=== PATIENT | male | born 1950 | race Caucasian/White ===

== ENCOUNTER 2020-08-23 19:23 | Inpatient (IN) | payer MEDICARE ==
[2020-08-23] MEDS ORDERED: Sodium Chloride 0.9% 10 ML Syringe FLUSH PRN (20:09)
--- NOTE | 2020-08-23 20:14 | EDM.PDOC ---
ED HPI GENERAL MEDICAL PROBLEM - General Chief Complaint: Abdominal Pain Stated Complaint: abd pain Time Seen by Provider: 08/23/20 19:55 Source of Information: Reports: Patient, Old Records, RN History Limitations: Reports: No Limitations - History of Present Illness INITIAL COMMENTS - FREE TEXT/NARRATIVE: 70 yo male here with RLQ pain that began about 0100h today and has gradually worsened. He has had decreased appetite and feels a little bloated. Has had 2 normal BM's today. PHx includes hernia repair, no other abdominal surgeries. No fever or urinary sx's. Onset: Today, Gradual Onset Date: 08/23/20 Duration: Hour(s):, Getting Worse Location: Reports: Abdomen Quality: Reports: Ache Severity: Moderate Improves with: Reports: Rest Worsens with: Reports: Other (time) Context: Reports: Other (See HPI) Associated Symptoms: Reports: Loss of Appetite, Malaise. Denies: Fever/Chills, Nausea/Vomiting Treatments [employer] GUID[employer] COUNSELOR: Reports: Other (see below) (none) - Related Data Allergies Allergy/AdvReac Type Severity Reaction Status Date / Time hydromorphone [From Dilaudid] Allergy Nausea and Verified 08/23/20 19:44 Vomiting lisinopril AdvReac Cough Verified 08/23/20 19:44 Home Meds: Home Meds Amitriptyline [Elavil] 50 mg PO BEDTIME 09/15/13 [History] Aspirin [Adult Low Dose Aspirin EC] 81 mg PO DAILY 09/15/13 [History] Chlorhexidine [Chlorhexidine Flavor] 1 ml PO DAILY 09/15/13 [History] Hydrochlorothiazide 25 mg PO DAILY 09/15/13 [History] Hyoscyamine [Levsin] 0.125 mg PO DAILY 09/15/13 [History] Triamcinolone Acetonide [Nasacort AQ [place]] 2 spray TOP DAILY 09/15/13 [History] amLODIPine Besylate [Amlodipine Besylate] 5 mg PO DAILY 09/15/13 [History] atorvaSTATin Calcium [Atorvastatin Calcium] 20 mg PO DAILY 09/15/13 [History] metFORMIN [Glucophage] 500 mg PO BID 09/15/13 [History] Dulaglutide [Trulicity] 1.5 mg SQ WEEKLY 08/23/20 [History] Past Medical History HEENT History: Reports: Otitis Media Cardiovascular History: Reports: High Cholesterol, Hypertension Respiratory History: Reports: Sleep Apnea Other Respiratory History: cpap Gastrointestinal History: Reports: Chronic Constipation Genitourinary History: Reports: None Musculoskeletal History: Reports: Arthritis, Other (See Below) Neurological History: Reports: None Psychiatric History: Reports: None Endocrine/Metabolic History: Reports: Diabetes, Type II, Obesity/BMI 30+ Hematologic History: Reports: None Immunologic History: Reports: None Oncologic (Cancer) History: Reports: None Dermatologic History: Reports: None - Infectious Disease History Infectious Disease History: Reports: Chicken Pox - Past Surgical History Head Surgeries/Procedures: Reports: None HEENT Surgical History: Reports: LASIK Cardiovascular Surgical History: Reports: None GI Surgical History: Reports: Hernia, Abdominal Endocrine Surgical History: Reports: None Musculoskeletal Surgical History: Reports: Arthroscopic Knee, Other (See Below) Other Musculoskeletal Surgeries/Procedures:: Knee surgery Dermatological Surgical History: Reports: None Social & Family History - Tobacco Use Tobacco Use Status *Q: Former Tobacco User Used Tobacco, but Quit: Yes Month/Year Tobacco Last Used: 1999 Second Hand Smoke Exposure: No - Caffeine Use Caffeine Use: Reports: Coffee - Recreational Drug Use Recreational Drug Use: No ED ROS GENERAL - Review of Systems Review Of Systems: See Below Constitutional: Reports: Malaise, Decreased Appetite HEENT: Reports: No Symptoms Respiratory: Reports: No Symptoms Cardiovascular: Reports: No Symptoms Endocrine: Reports: No Symptoms GI/Abdominal: Reports: Abdominal Pain, Decreased Appetite, Distension. Denies: Black Stool, Bloody Stool, Constipation, Diarrhea, Flatus, Hematemesis, Hematochezia, Melena, Nausea, Vomiting : Reports: No Symptoms Musculoskeletal: Reports: No Symptoms Skin: Reports: No Symptoms Neurological: Reports: No Symptoms Psychiatric: Reports: No Symptoms ED EXAM, GI/ABD - Physical Exam Exam: See Below Exam Limited By: No Limitations General Appearance: Alert, WD/WN, No Apparent Distress Eyes: Bilateral: Normal Appearance Ears: Normal External Exam, Normal Canal, Hearing Grossly Normal Nose: Normal Inspection, No Blood Throat/Mouth: Normal Inspection, Normal Lips, Normal Oropharynx, Normal Voice, No Airway Compromise Head: Atraumatic, Normocephalic Neck: Normal Inspection Respiratory/Chest: No Respiratory Distress, Lungs Clear, Normal Breath Sounds, No Accessory Muscle Use Cardiovascular: Regular Rate, Rhythm, No Edema GI/Abdominal Exam: Soft, Distended (minimal), Tender (RLQ). No: Non-Tender, No Distention, Guarding, Rigid Back Exam: Normal Inspection Extremities: Normal Inspection, Normal Range of Motion, Non-Tender, No Pedal Edema Neurological: Alert, Oriented, CN II-XII Intact, Normal Cognition, No Motor/Sensory Deficits Psychiatric: Normal Affect, Normal Mood Skin Exam: Warm, Dry, Intact, Normal Color, No Rash Course - Vital Signs Text/Narrative:: Dr. Ninfa Max called @ 5061h Last Recorded V/S: Last Vital Signs Temp 35.6 C L 08/23/20 19:49 Pulse 114 H 08/23/20 21:31 Resp 16 08/23/20 21:31 BP 164/89 H 08/23/20 21:31 Pulse Ox 95 08/23/20 21:31 - Orders/Labs/Meds Orders: Active Orders 24 hr Category Date Time Status NS + KCl 20mEq/L [Normal Saline with 20 mEq KCl] 1,000 Med 08/23/20 20:45 Active ml IV ASDIRECTED Sodium Chloride 0.9% [Normal Saline] 83 ml Med 08/23/20 21:00 Active IV ASDIRECTED Sodium Chloride 0.9% [Saline Flush] Med 08/23/20 20:09 Active 10 ml FLUSH ASDIRECTED PRN Saline Lock Insert [OM.PC] Routine Oth 08/23/20 20:09 Ordered Medication Orders Potassium Chloride/Sodium Chloride (Normal Saline With 20 Meq Kcl) 1,000 mls @ 150 mls/hr IV ASDIRECTED NIELS Last Admin: 08/23/20 20:57 Dose: 150 mls/hr Documented by: LEEROY Sodium Chloride (Normal Saline) 83 mls @ 3.5 mls/sec IV ASDIRECTED NIELS Last Admin: 08/23/20 21:21 Dose: 3 mls/sec Documented by: DARWIN Sodium Chloride (Saline Flush) 10 ml FLUSH ASDIRECTED PRN PRN Reason: Keep Vein Open Last Admin: 08/23/20 20:58 Dose: 10 ml Documented by: LEEROY Labs: Laboratory Tests 08/23/20 08/23/20 08/23/20 Range/Units 20:19 20:19 20:19 WBC 15.2 H (4.5-11.0) K/uL RBC 4.99 (4.30-5.90) M/uL Hgb 14.9 (12.0-15.0) g/dL Hct 44.8 (40.0-54.0) % MCV 90 (80-98) fL MCH 30 (27-31) pg MCHC 33 (32-36) % Plt Count 239 (150-400) K/uL Sodium 136 L (140-148) mmol/L Potassium 3.3 L (3.6-5.2) mmol/L Chloride 99 L (100-108) mmol/L Carbon Dioxide 28 (21-32) mmol/L Anion Gap 12.3 (5.0-14.0) mmol/L BUN 17 (7-18) mg/dL Creatinine 0.9 (0.8-1.3) mg/dL Est Cr Clr Drug Dosing 59.36 mL/min Estimated GFR (MDRD) > 60 (>60) Glucose 157 H (74-106) mg/dL Calcium 9.6 (8.5-10.1) mg/dL C-Reactive Protein 0.20 (0.0-0.3) mg/dL Urine Color (YELLOW) Urine Appearance (CLEAR) Urine pH (5.0-8.0) Ur Specific [place] (1.008-1.030) Urine Protein (NEGATIVE) mg/dL Urine Glucose (UA) (NEGATIVE) mg/dL Urine Ketones (NEGATIVE) mg/dL Urine Occult Blood (NEGATIVE) Urine Nitrite (NEGATIVE) Urine Bilirubin (NEGATIVE) Urine Urobilinogen (0.2-1.0) EU/dL Ur Leukocyte Esterase (NEGATIVE) Urine RBC (0-5) Urine WBC (0-5) Ur Epithelial Cells Amorphous Sediment Urine Bacteria Urine Mucus 08/23/20 Range/Units 20:57 WBC (4.5-11.0) K/uL RBC (4.30-5.90) M/uL Hgb (12.0-15.0) g/dL Hct (40.0-54.0) % MCV (80-98) fL MCH (27-31) pg MCHC (32-36) % Plt Count (150-400) K/uL Sodium (140-148) mmol/L Potassium (3.6-5.2) mmol/L Chloride (100-108) mmol/L Carbon Dioxide (21-32) mmol/L Anion Gap (5.0-14.0) mmol/L BUN (7-18) mg/dL Creatinine (0.8-1.3) mg/dL Est Cr Clr Drug Dosing mL/min Estimated GFR (MDRD) (>60) Glucose (74-106) mg/dL Calcium (8.5-10.1) mg/dL C-Reactive Protein (0.0-0.3) mg/dL Urine Color Yellow (YELLOW) Urine Appearance Cloudy A (CLEAR) Urine pH 8.0 (5.0-8.0) Ur Specific [place] 1.025 (1.008-1.030) Urine Protein Negative (NEGATIVE) mg/dL Urine Glucose (UA) Negative (NEGATIVE) mg/dL Urine Ketones Negative (NEGATIVE) mg/dL Urine Occult Blood Negative (NEGATIVE) Urine Nitrite Negative (NEGATIVE) Urine Bilirubin Negative (NEGATIVE) Urine Urobilinogen 0.2 (0.2-1.0) EU/dL Ur Leukocyte Esterase Negative (NEGATIVE) Urine RBC Not seen (0-5) Urine WBC 0-5 (0-5) Ur Epithelial Cells Not seen Amorphous Sediment Packed Urine Bacteria Rare Urine Mucus Not seen Meds: Medications Generic Name Dose Route Start Last Admin Trade Name Freq PRN Reason Stop Dose Admin Potassium Chloride/Sodium Chloride 1,000 mls @ 150 mls/hr 08/23/20 20:45 08/23/20 20:57 Normal Saline With 20 Meq Kcl IV 150 mls/hr ASDIRECTED NIELS Administration Sodium Chloride 83 mls @ 3.5 mls/sec 08/23/20 21:00 08/23/20 21:21 Normal Saline IV 3 mls/sec ASDIRECTED NIELS Administration Sodium Chloride 10 ml 08/23/20 20:09 08/23/20 20:58 Saline Flush FLUSH 10 ml ASDIRECTED PRN Administration Keep Vein Open Discontinued Medications Generic Name Dose Route Start Last Admin Trade Name Freq PRN Reason Stop Dose Admin Iopamidol 141 ml 08/23/20 21:00 08/23/20 21:22 Isovue-300 (61%) IV 141 ml . DIRECTED NIELS Administration Sodium Chloride 10 ml 08/23/20 21:00 08/23/20 21:21 Saline Flush FLUSH 08/23/20 21:01 10 ml ONETIME ONE Administration - Radiology Interpretation Free Text/Narrative:: CT abd/pelvis with IV contrast-IMPRESSION: Acute appendicitis. Fluid collection measuring approximately 3 x 2 cm is along the medial margin of the cecum near the inflamed appendix. This could represent an abscess or mucocele. Dictated by Dontae Gray MD @ 08/23/2020 10:10:22 PM Please note that all CT scans at this facility use dose modulation, iterative reconstruction, and/or weight-based dosing when appropriate to reduce radiation dose to as low as reasonably achievable. Dictated by: Dontae Gray MD @ 08/23/2020 22:10:35 Departure - Departure Time of Disposition: 22:30 Disposition: Admitted As Inpatient 65 Condition: Fair Clinical Impression: Hypokalemia Acute appendicitis Qualifiers: Acute appendicitis type: with localized peritonitis Appendicitis gangrene presence: unspecified whether gangrene present Appendicitis perforation presence: unspecified whether perforation present Appendicitis abscess presence: unspecified whether abscess present Qualified Code(s): K35.30 - Acute appendicitis with localized peritonitis, without perforation or gangrene - Discharge Information Referrals: Sudhir Vargas MD [Primary Care Provider] - Forms: ED Department Discharge Sepsis Event Note (ED) - Evaluation Sepsis Screening Result: No Definite Risk - Focused Exam Vital Signs: Vital Signs Temp Pulse Resp BP Pulse Ox 08/23/20 21:31 114 H 16 164/89 H 95 08/23/20 20:55 106 H 170/103 H 08/23/20 19:49 35.6 C L 111 H 22 H 187/114 H 97 08/23/20 19:43 35.6 C L 111 H 22 H 187/114 H 97 - My Orders Last 24 Hours: My Active Orders 08/23/20 20:09 Sodium Chloride 0.9% [Saline Flush] 10 ml FLUSH ASDIRECTED PRN Saline Lock Insert [OM.PC] Routine 08/23/20 20:45 NS + KCl 20mEq/L [Normal Saline with 20 mEq KCl] 1,000 ml IV ASDIRECTED 08/23/20 21:00 Sodium Chloride 0.9% [Normal Saline] 83 ml IV ASDIRECTED - Assessment/Plan Last 24 Hours: My Active Orders 08/23/20 20:09 Sodium Chloride 0.9% [Saline Flush] 10 ml FLUSH ASDIRECTED PRN Saline Lock Insert [OM.PC] Routine 08/23/20 20:45 NS + KCl 20mEq/L [Normal Saline with 20 mEq KCl] 1,000 ml IV ASDIRECTED 08/23/20 21:00 Sodium Chloride 0.9% [Normal Saline] 83 ml IV ASDIRECTED
[2020-08-23] MEDS ORDERED: NS + KCl 20mEq/L 1,000 ML IV SCH (20:45)
[2020-08-23] MEDS ORDERED: Iopamidol 612 MG/ML 150 ML Bottle IV SCH (21:00)
[2020-08-23] MEDS ORDERED: Sodium Chloride 0.9% 10 ML Syringe FLUSH ONE (21:00)
--- NOTE | 2020-08-23 22:12 | CRLCT ---
INDICATION: Right lower quadrant abdomen pain. TECHNIQUE: CT abdomen and pelvis acquired with 141 cc Isovue-300 IV contrast. COMPARISON: October 22, 2019. FINDINGS: Lower chest: Unremarkable. Liver: Unremarkable. Normal in size and attenuation. No masses. Gallbladder and bile ducts: Unremarkable. No stones or inflammation. No biliary dilatation. Pancreas: Unremarkable. No mass or inflammation. Spleen: Unremarkable. Normal in size. No masses. Adrenal glands: Unremarkable. No nodules. Kidneys: Single tiny nonobstructive stones in the right kidney. There is also a small benign-appearing cyst in the right kidney. No hydronephrosis. GI tract: Unremarkable. Normal in caliber. No sign of mass or inflammation. Appendix is inflamed and dilated up to 9 mm. A fluid collection along the medial margin of the cecum on series 2, image 81 measures 3.4 x 1.9 cm. This fluid collection has an enhancing rim. Vasculature: Unremarkable. Mesenteric arteries are patent. Lymph nodes: No lymphadenopathy. Omentum/Peritoneum/Abdominal Wall: Unremarkable. No sign of mass or infiltration. No free air or significant free fluid. Pelvis: Mild prostate gland enlargement. Bones: Unremarkable for age. IMPRESSION: Acute appendicitis. Fluid collection measuring approximately 3 x 2 cm is along the medial margin of the cecum near the inflamed appendix. This could represent an abscess or mucocele. Dictated by Dontae Gray MD @ 08/23/2020 10:10:22 PM Please note that all CT scans at this facility use dose modulation, iterative reconstruction, and/or weight-based dosing when appropriate to reduce radiation dose to as low as reasonably achievable. Dictated by: Dontae Gray MD @ 08/23/2020 22:10:35 (Electronically Signed)
[2020-08-23] MEDS ORDERED: Ampicillin/Sulbactam Na 3 GM in Sodium Chloride 0.9% 100 ML IV ONE (22:20)
[2020-08-23] MEDS ORDERED: Dextrose 5%-Lactated Ringers 1,000 ML IV SCH (23:00)
[2020-08-23] MEDS ORDERED: Morphine 2 MG/ML SYRINGE IVPUSH PRN (23:11)
[2020-08-24] MEDS ORDERED: Bupivacaine 0.5%/EPINEPHrine 1:200,000 50 ML MDV ONE (05:25)
[2020-08-24] MEDS ORDERED: Propofol 200 MG/20 ML SDV ONE (06:17)
[2020-08-24] MEDS ORDERED: Ondansetron 4 MG/2 ML SDV ONE (06:17)
[2020-08-24] MEDS ORDERED: Dexamethasone 4 MG/ML SDV ONE (06:17)
[2020-08-24] MEDS ORDERED: Neostigmine Methylsulfate 1 MG/ML 5 ML Syringe ONE (06:17)
[2020-08-24] MEDS ORDERED: Succinylcholine 200 MG/10 ML MDV ONE (06:17)
[2020-08-24] MEDS ORDERED: Rocuronium 50 MG/5 ML Vial ONE (06:17)
[2020-08-24] MEDS ORDERED: Glycopyrrolate 0.2 MG/ML 5 ML MDV ONE (06:17)
[2020-08-24] MEDS ORDERED: fentaNYL 250 MCG/5 ML SDV ONE ×2 (06:18→07:07)
[2020-08-24] MEDS ORDERED: Ampicillin/Sulbactam Na 3 GM in Sodium Chloride 0.9% 100 ML IV ONE (06:30)
[2020-08-24] MEDS ORDERED: 50% Dextrose in Water 50 ML Syringe IVPUSH PRN ×2 (08:39→08:52)
[2020-08-24] MEDS ORDERED: Glucagon,Human Recombinant 1 MG Vial IM PRN ×2 (08:39→08:52)
[2020-08-24] MEDS ORDERED: Insulin Lispro 100 Unit/ML 3 ML KwikPen SUBCUT ONE (08:45)
[2020-08-24] MEDS ORDERED: Glucose Gel 15 GM in 37.5 GM Tube PO PRN (08:52)
[2020-08-24] MEDS ORDERED: hydrOXYzine HCL 100 MG/2 ML SDV IM PRN (08:56)
[2020-08-24] MEDS ORDERED: Ondansetron 4 MG/2 ML SDV IVPUSH PRN (08:56)
[2020-08-24] MEDS ORDERED: Morphine 4 MG/ML Syringe IVPUSH PRN (09:00)
[2020-08-24] MEDS ORDERED: Hyoscyamine 0.125 MG Tab.SL SL PRN (09:08)
[2020-08-24] MEDS: Morphine 2 MG/ML SYRINGE IVPUSH PRN ×2 (09:27→12:07)
[2020-08-24] MEDS: metFORMIN 500 MG Tab PO SCH ×2 (09:57→17:01)
[2020-08-24] MEDS: Fluticasone Propionate Nasal Spray 16 GM Bottle NASBOTH SCH (09:59)
[2020-08-24] MEDS: Ibuprofen 400 MG Tab PO SCH ×3 (10:01→21:40)
[2020-08-24] MEDS: Aspirin 81 MG Tab.EC PO SCH (10:01)
[2020-08-24] MEDS: amLODIPine 5 MG Tab PO SCH (10:01)
[2020-08-24] MEDS: Hydrochlorothiazide 25 MG Tab PO SCH (10:01)
[2020-08-24] MEDS: Acetaminophen 500 MG Tab PO SCH ×3 (10:02→21:40)
[2020-08-24] MEDS: Lactated Ringers 1,000 ML IV SCH ×3 (10:05→23:48)
[2020-08-24] MEDS ORDERED: Pantoprazole 40 MG Vial IV SCH (11:00)
[2020-08-24] MEDS: Ampicillin/Sulbactam Na 3 GM in Sodium Chloride 0.9% 100 ML IV SCH ×3 (11:22→23:48)
[2020-08-24] MEDS: oxyCODONE 5 MG Tab PO PRN ×3 (13:33→22:19)
[2020-08-24] MEDS: Insulin Lispro 100 Unit/ML 3 ML KwikPen SUBCUT PRN ×2 (17:02→21:41)
[2020-08-24] MEDS: Amitriptyline 25 MG Tab PO SCH (21:39)
[2020-08-24] MEDS: atorvaSTATin 20 MG Tab PO SCH (21:39)
[2020-08-25] MEDS: Ibuprofen 400 MG Tab PO SCH ×4 (04:16→21:06)
[2020-08-25] MEDS: Acetaminophen 500 MG Tab PO SCH ×4 (04:17→21:05)
[2020-08-25] MEDS: Ampicillin/Sulbactam Na 3 GM in Sodium Chloride 0.9% 100 ML IV SCH ×3 (05:36→18:01)
[2020-08-25] MEDS: oxyCODONE 5 MG Tab PO PRN ×3 (05:36→21:07)
[2020-08-25] MEDS ORDERED: Magnesium Hydroxide 400 MG/5 ML Susp 30 ML Cup PO PRN (07:14)
[2020-08-25] MEDS: Lactated Ringers 1,000 ML IV SCH ×2 (08:08→18:01)
[2020-08-25] MEDS: Insulin Lispro 100 Unit/ML 3 ML KwikPen SUBCUT PRN ×2 (08:24→21:19)
--- NOTE | 2020-08-25 09:07 | PN ---
DATE OF SERVICE: 08/25/2020 SUBJECTIVE: Jorge Luis is postoperative day #1 following a laparoscopic appendectomy. Pain is controlled with oxycodone. Cespedes was removed. He has not voided yet. Remains to be afebrile. Blood sugar this morning was 196. During the night, he did receive coverage with regular insulin. Oral intake 2238. Output 2059. DORON drain put out 102 of a light pink drainage. REVIEW OF SYSTEMS: Remainder of review of systems negative for any pertinent positives and negatives. OBJECTIVE: GENERAL: Jorge Luis Morales is a 70-year-old male. Alert and orientated. VITAL SIGNS: TPR 96.4, 105, 18, blood pressure 130/80. HEENT: Negative. NECK: Supple. HEART: Regular rate and rhythm. LUNGS: Clear. ABDOMEN: Dressings dry and intact. Abdominal binder is on. EXTREMITIES: Without peripheral edema. ASSESSMENT: 1. Diagnostic laparoscopy with lysis of adhesions. 2. Appendectomy with drainage of periappendiceal abscess. 3. Excision of peritoneal nodule for acute appendicitis at abdominal adhesions and peritoneal nodule. Date of procedure: 08/24/2020. Surgeon: Jose Max MD. PLAN: 1. Dressing off, may shower. 2. Consistent carb diet. 3. Dulcolax 10 mg p.o. b.i.d. 4. Colace 100 mg p.o. b.i.d. 5. Decrease lactated Ringer's to 100 mL per hour. 6. Milk of magnesia 30 mL b.i.d. p.r.n. 7. Continue use of incentive spirometer. 8. We will evaluate p.r.n. or in a.m. Juliet Mcgregor PA-C /[id number]
[2020-08-25] MEDS: Bisacodyl 5 MG Tab PO SCH ×2 (09:15→21:05)
[2020-08-25] MEDS: Aspirin 81 MG Tab.EC PO SCH (09:15)
[2020-08-25] MEDS: Docusate Sodium 100 MG Cap PO SCH ×2 (09:16→21:05)
[2020-08-25] MEDS: Fluticasone Propionate Nasal Spray 16 GM Bottle NASBOTH SCH (09:17)
[2020-08-25] MEDS: metFORMIN 500 MG Tab PO SCH ×2 (09:18→16:58)
[2020-08-25] MEDS: Hydrochlorothiazide 25 MG Tab PO SCH (09:20)
[2020-08-25] MEDS: amLODIPine 5 MG Tab PO SCH (09:20)
[2020-08-25] MEDS: CHLORHEXIDINE 0.12% PO SCH (09:21)
[2020-08-25] MEDS: Pantoprazole 40 MG Tab.CR PO SCH (11:35)
[2020-08-25] MEDS ORDERED: Bisacodyl 10 MG Supp RECTAL PRN (13:02)
[2020-08-25] MEDS: atorvaSTATin 20 MG Tab PO SCH (21:05)
[2020-08-25] MEDS: Amitriptyline 25 MG Tab PO SCH (21:05)
[2020-08-25] MEDS ORDERED: Amoxicillin/Clavulanate K 875-125 MG Tab PO ONE (22:30)
[2020-08-26] MEDS: Ibuprofen 400 MG Tab PO SCH ×2 (03:38→11:34)
[2020-08-26] MEDS: Acetaminophen 500 MG Tab PO SCH ×2 (03:38→11:34)
[2020-08-26] MEDS: oxyCODONE 5 MG Tab PO PRN (07:31)
[2020-08-26] MEDS: Pantoprazole 40 MG Tab.CR PO SCH (07:33)
[2020-08-26] MEDS: Docusate Sodium 100 MG Cap PO SCH (08:58)
[2020-08-26] MEDS: metFORMIN 500 MG Tab PO SCH (08:58)
[2020-08-26] MEDS: Hydrochlorothiazide 25 MG Tab PO SCH (08:59)
[2020-08-26] MEDS: Fluticasone Propionate Nasal Spray 16 GM Bottle NASBOTH SCH (08:59)
[2020-08-26] MEDS: Aspirin 81 MG Tab.EC PO SCH (08:59)
[2020-08-26] MEDS: Bisacodyl 5 MG Tab PO SCH (08:59)
[2020-08-26] MEDS: amLODIPine 5 MG Tab PO SCH (08:59)
[2020-08-26] MEDS ORDERED: Amoxicillin/Clavulanate K 875-125 MG Tab PO SCH (09:00)
[2020-08-26] MEDS: CHLORHEXIDINE 0.12% PO SCH (09:00)
[2020-08-26] MEDS ORDERED: Magnesium Hydroxide 400 MG/5 ML Susp 30 ML Cup PO PRN (09:39)
--- NOTE | 2020-08-30 09:46 | DISCH ---
FINAL DIAGNOSES: 1. Perforated appendicitis with periappendiceal abscess. 2. Nodular lesion on distal small bowel. 3. History of hypertension. 4. History of type 2 diabetes mellitus. 5. Hyperlipidemia. OPERATIVE PROCEDURE: Done on 08/24, diagnostic laparoscopy with lysis of adhesions and; 1. Appendectomy with drainage of periappendiceal abscess. 2. Excision of peritoneal nodule over distal small bowel. SUMMARY: This is a 70-year-old male presenting with 24-hour onset of abdominal pain. Workup included a CT scan which is consistent with appendicitis with some fluid around suggestive of a perforation periappendiceal abscess formation. The patient was given preoperative antibiotics at the time of operative procedure. He was noted to have quite a bit in the way of adhesions to the omentum and small bowel to the previous periumbilical mesh as well as quite a bit in the way of scarring around the area of the appendix and these were eventually all taken down and appendectomy and drainage of periappendiceal accomplished. The patient did have a whitish nodule on the surface of the distal small bowel measuring around 3 mm. This was excised and sent as a separate specimen. Postoperatively, at this point, the patient's pain is controlled with oxycodone and Tylenol. He has moved his bowels. The cultures are just now growing out some types of gram-negative rods. He will be sent home on Augmentin 875 mg b.i.d. x5 days and oxycodone 5 mg q.4 hours p.r.n. pain #40. Otherwise, he has been instructed that he can take Tylenol as well, and he will be sent home with 2 additional doses of milk of magnesia to help with bowel movements as necessary. Otherwise, he will be continuing his usual home medications. Drain will be removed today, and follow up with Juliet Mcgregor will be on 09/02/2019 at 9:30 a.m. /[id number]
--- NOTE | 2020-09-09 14:47 | OR ---
DATE OF PROCEDURE: 08/24/2020 SURGEON: Jose Max MD PREOPERATIVE DIAGNOSIS: Acute appendicitis. POSTOPERATIVE DIAGNOSES: 1. Perforated appendicitis with periappendiceal abscess. 2. Nodular (2 mm) peritoneal lesion over distal small bowel. PROCEDURES: 1. Diagnostic laparoscopy with lysis of adhesions. a. Appendectomy with drainage of periappendiceal abscess ([id number]). b. Excision of peritoneal nodule over distal small bowel (16441). ANESTHESIA: General. INDICATION FOR PROCEDURE: This is a 70-year-old male presenting with an acute appendicitis. Plan is to proceed with diagnostic laparoscopy, laparotomy if necessary, and appendectomy. The patient had a previous abdominal wall hernia repair with mesh and so is aware of somewhat higher risk and need for an open approach if extensive adhesions were identified. Potential risks otherwise including bleeding, infection, leaks from GI tract closures, need for more additional or more extensive surgery, for any pathologic findings were all reviewed along with a remote possibility of cardiopulmonary, septic, or hemorrhagic complications leading to , and the patient wishes to proceed. DETAILS OF PROCEDURE: The patient was taken to the operating room and placed in a supine position. After general endotracheal anesthesia was induced, a Cespedes catheter was inserted and the abdomen prepped and draped. A transverse incision in the left upper quadrant was then made and the peritoneal cavity entered under direct vision with an Optiview trocar. The peritoneal cavity was inflated to 15 mmHg pressure of CO2. The laparoscope was reinserted. No underlying trocar insertion site injuries were seen. 12 mm trocars were then placed in the left lower quadrant as well as right upper quadrant. The patient did have quite extensive adhesions between the omentum and the periumbilical mesh. These adhesions were taken down with Harmonic scalpel. At that point, the area around the appendix could be identified. The patient had an obvious appendicitis with a purulent material around consistent with periappendiceal abscess. This fluid was evacuated and cultures were obtained. Because of base of the cecum was divided and did flush with a single-lumen ALIREZA purple load. The mesentery of the appendix was then divided with Harmonic scalpel, and through specimen bag the appendix was delivered through the left lower quadrant trocar site. Inspection revealed a roughly 3 mm white nodular lesion over the peritoneal surface of the distal small bowel. This was excised with sharp dissection with minimal serosal disruption and sent for histologic evaluation. At this point, Larry-Rivera drain was placed through a 5 mm port placed in the right flank and positioned over the appendectomy site in the abscess location and from there down into the pelvis. The trocars were sequentially removed after bilateral transversus abdominis plane blocks had been placed. Fascia at the 12 mm site was closed with 0 Vicryl stitch and the skin with 4-0 Vicryl skin stitch. Dressing was applied. The patient was taken to the recovery room in satisfactory condition. There were no evident complications. Jose Max MD /[id number]
== END 2020-08-26 11:00 | disposition home or self-care (01) | DRG 340 ==
LOC: JP.ED 19:23 → JP.MS 22:55
PROVIDERS: ADMIT Surgery; ATTEND Surgery
PROC: 0DTJ4ZZ Resection of Appendix, Percutaneous Endoscopic Approach (ICD-10-PCS; principal; 2020-08-24)
PROC: 0DBW4ZZ Excision of Peritoneum, Percutaneous Endoscopic Approach (ICD-10-PCS; 2020-08-24)
DX: K35.33 Acute appendicitis with perforation, localized peritonitis, and gangrene, with abscess (principal); E87.6 Hypokalemia; E78.00 Pure hypercholesterolemia, unspecified; I10 Essential (primary) hypertension; G47.30 Sleep apnea, unspecified; K59.09 Other constipation; M19.90 Unspecified osteoarthritis, unspecified site; E11.9 Type 2 diabetes mellitus without complications; E66.9 Obesity, unspecified; Z88.5 Allergy status to narcotic agent; Z79.84 Long term (current) use of oral hypoglycemic drugs; Z79.82 Long term (current) use of aspirin; Z79.899 Other long term (current) drug therapy; Z87.891 Personal history of nicotine dependence; Z98.890 Other specified postprocedural states; Z99.81 Dependence on supplemental oxygen; Z88.8 Allergy status to other drugs, medicaments and biological substances; K66.9 Disorder of peritoneum, unspecified; Z68.37 Body mass index [BMI] 37.0-37.9, adult; Z20.828 Contact with and (suspected) exposure to other viral communicable diseases
CPT/HCPCS: 36415; 74177; 80048; 81001; 85027; 86140; 96365; 96366; 99285; J3480; Q9967; 82962; 87070; 87075; 87077; 87186; 87205; 88304; 88305; 94762; 99284; A9270-GY; C9113; J0171; J0295; J0330; J1100; J1815; J2270; J2405; J2704; J2710; J2795; J3010; J3490; J7050; J7120; J7121; U0002

== ENCOUNTER 2022-01-30 07:27 | Day surgery (SDC) | payer MEDICARE ==
[2022-01-30] MEDS ORDERED: Dextrose 5%-Lactated Ringers 1,000 ML IV SCH (08:00)
[2022-01-30] MEDS ORDERED: Propofol 200 MG/20 ML SDV ONE (09:04)
[2022-01-30] MEDS ORDERED: fentaNYL 100 MCG/2 ML SDV ONE (09:04)
== END 2022-01-30 10:46 | disposition home or self-care (01) ==
LOC: JP.SDS 07:27
PROVIDERS: ATTEND Surgery
DX: Z12.11 Encounter for screening for malignant neoplasm of colon (principal); D12.3 Benign neoplasm of transverse colon; G47.33 Obstructive sleep apnea (adult) (pediatric); I10 Essential (primary) hypertension; E11.9 Type 2 diabetes mellitus without complications; Z88.5 Allergy status to narcotic agent; Z88.8 Allergy status to other drugs, medicaments and biological substances; Z98.890 Other specified postprocedural states; Z80.0 Family history of malignant neoplasm of digestive organs
CPT/HCPCS: 88305; J2704; J3010; J7121

== ENCOUNTER 2025-01-21 09:38 | Day surgery (SDC) | payer MEDICARE ==
[2025-01-21] MEDS ORDERED: Midazolam 1 MG/ML 2 ML SDV ONE (10:35)
[2025-01-21] MEDS ORDERED: Propofol 200 MG/20 ML SDV ONE (10:35)
[2025-01-21] MEDS ORDERED: fentaNYL 100 MCG/2 ML SDV ONE (10:35)
[2025-01-21] MEDS: Lactated Ringers 1,000 ML IV SCH (10:44)
[2025-01-21] MEDS: ceFAZolin 2 GM in Premix Bag 1 BAG IV ONE (13:35)
[2025-01-21] MEDS: Bupivacaine 0.25%/EPINEPHrine 1:200,000 30 ML SDV ONE (14:15)
[2025-01-21] MEDS: Bacitracin Oint 1 GM U/D Packet ONE (14:41)
== END 2025-01-21 15:48 | disposition home or self-care (01) ==
LOC: JP.SDS 09:38
PROVIDERS: ATTEND Surgery
DX: D04.62 Carcinoma in situ of skin of left upper limb, including shoulder (principal); I10 Essential (primary) hypertension
CPT/HCPCS: 00400; 11603; 12032; 88305; J0690; J2250; J2704; J3010; J7120